=== PATIENT | female | born 1945 | race Asian ===

== ENCOUNTER 2024-08-28 15:52 | Emergency (ER) | payer OTHER ==
[~2024-08-28] VITALS: Ht 147.3 cm; Wt 59.1 kg
[2024-08-28 15:56] VITALS: TEMP 98.2
[2024-08-28] MEDS: SODIUM CHLORIDE 0.9% 1,000 ML IV ONE (16:15)
[2024-08-28] MEDS: TraMADol HCL 50 MG TABLET PO ONE (16:16)
[2024-08-28 16:21] LABS: BASOPHILS % (AUTO) 0.4 % (0.0-2.0); EOSINOPHILS % (AUTO) 0.5 % (1.0-6.0); HEMATOCRIT 37.7 % (36-46); HEMOGLOBIN 12.1 g/dL (12.0-16.0); LYMPHOCYTES # (AUTO) 0.9 K/uL (1.0-4.8); LYMPHOCYTES % (AUTO) 11.4 % (22.0-44.0); MEAN CORPUSCULAR HEMOGLOBIN 29.5 pg (26.0-34.0); MEAN CORPUSCULAR HGB CONC 32.1 G/dL (31.0-37.0); MEAN CORPUSCULAR VOLUME 92 fL (80-100); MONOCYTES # (AUTO) 0.7 K/uL (0.1-1.0); MONOCYTES % (AUTO) 8.8 % (2.0-9.0); NEUTROPHILS # (AUTO) 5.9 K/uL (1.8-7.7); NEUTROPHILS % (AUTO) 78.9 % (40.0-70.0); PLATELET COUNT (AUTO) 198 K/uL (150-450); RED CELL DISTRIBUTION WIDTH 15.5 % (11.5-14.5); WHITE BLOOD COUNT (AUTO) 7.5 K/uL (4.5-11.0)
[2024-08-28 16:28] LABS: CALCIUM, TOTAL 8.7 mg/dL (8.8-10.5); CREATININE 1.06 mg/dL (0.60-1.30); POTASSIUM 3.5 mmol/L (3.5-5.1)
[2024-08-28 16:36] LABS: COVID AG,FIA SOURCE NASAL SWAB
[2024-08-28 16:44] LABS: TROPONIN I-HIGH SENSITIVITY 6 ng/L (<51)
[2024-08-28 16:50] LABS: PROTHROMBIN TIME 17.8 SEC (9.4-11.6)
[2024-08-28 16:55] LABS: INFLUENZA TYPE A NEGATIVE FOR TYPE A (NEGATIVE); INFLUENZA TYPE B NEGATIVE FOR TYPE B (NEGATIVE); SARS-COV2 (COVID) ANTIGEN,FIA Negative (Negative)
[2024-08-28] MEDS ORDERED: ATOR40TA28 PO (17:33)
[2024-08-28] MEDS ORDERED: LOSA-381 PO (17:33)
[2024-08-28] MEDS ORDERED: ALLO-97 PO (17:33)
[2024-08-28] MEDS ORDERED: WARF2.5T10 PO (17:33)
[2024-08-28] MEDS ORDERED: METO50 PO (17:33)
[2024-08-28] MEDS: HYDROCODONE/ACETAMINOPHEN 5-325 MG TABLET PO ONE (17:59)
[2024-08-28 18:09] LABS: APPEARANCE,URINE CLEAR (CLEAR); BILIRUBIN,URINE NEGATIVE (NEGATIVE); COLOR,URINE YELLOW (YELLOW); GLUCOSE, URINE (UA) NEGATIVE (NEGATIVE); LEUKOCYTE ESTERASE ,URINE NEGATIVE (NEGATIVE); NITRATE,URINE NEGATIVE (NEGATIVE); OCCULT BLOOD,URINE NEGATIVE (NEGATIVE); PH,URINE 5.5 (5.0-8.0); PROTEIN,URINE NEGATIVE (NEGATIVE); UROBILINOGEN,URINE <=1.0 mg/dL (<=1.0)
[2024-08-28] MEDS ORDERED: HYDR-4062 PO (19:56)
[2024-08-28 20:11] VITALS: BP 123/59; PULSE 99; RESP 17; O2SAT 97
== END 2024-08-28 20:29 | disposition home or self-care (01) ==
LOC: EMS 15:52
DX: S16.1XXA Strain of muscle, fascia and tendon at neck level, initial encounter (principal); R53.1 Weakness; I10 Essential (primary) hypertension; Z85.41 Personal history of malignant neoplasm of cervix uteri; Z90.710 Acquired absence of both cervix and uterus; Z20.822 Contact with and (suspected) exposure to COVID-19; X58.XXXA Exposure to other specified factors, initial encounter; Y93.89 Activity, other specified; Y92.89 Other specified places as the place of occurrence of the external cause; Y99.8 Other external cause status
CPT/HCPCS: 99285; 96360; 72125; 71045; 87426; 80048; 81003; 83880; 84484; 85025; 85610; 85730; 87804; 36415; 93005; J7030